=== PATIENT | female | born 1935 | race Two or more races ===

== ENCOUNTER 2025-01-23 18:43 | Inpatient (IN) | payer MEDICARE, OTHER ==
[~2025-01-23] VITALS: Ht 152.4 cm; Wt 74.0 kg
[2025-01-23] MEDS ORDERED: ACETAMINOPHEN ES 500 MG TABLET ONE (19:50)
[2025-01-23] MEDS: ACETAMINOPHEN ES 500 MG TABLET PO ONE (19:55)
[2025-01-23 20:10] LABS: PLATELET COUNT (AUTO) 223 K/uL (150-450); RED BLOOD CELL COUNT(AUTO) 3.84 MIL/uL (4.0-5.2); RED CELL DISTRIBUTION WIDTH 14.0 % (11.5-15.0); WHITE BLOOD COUNT (AUTO) 9.5 K/uL (4.3-11.0)
[2025-01-23 20:17] LABS: CALCIUM, SERUM 8.5 mg/dL (8.5-10.1); CREATININE 0.6 mg/dL (0.6-1.3); SODIUM SERUM 136 mmol/L (136-145); UREA NITROGEN, BLOOD 17 mg/dL (7-18)
[2025-01-23] MEDS ORDERED: Z GUARD REMEDY 4 OZ OINT TP PRN (22:30)
[2025-01-23] MEDS ORDERED: ACETAMINOPHEN 325 MG TABLET PO PRN (22:30)
[2025-01-23] MEDS ORDERED: ONDANSETRON HCL/PF 4 MG/2 ML VIAL IVP PRN (22:30)
[2025-01-23 23:25] VITALS: BP 121/64; TEMP 98.6; O2SAT 97
[2025-01-24] MEDS: HYDROMORPHONE 1 MG/1 ML DISP.SYRIN IV PRN (00:21)
[2025-01-24] MEDS: PANTOPRAZOLE 40 MG TABLET.DR PO SCH (07:30)
[2025-01-24 07:31] LABS: INR 0.96 (0.91-1.10)
[2025-01-24 07:33] LABS: PLATELET COUNT (AUTO) 205 K/uL (150-450); RED BLOOD CELL COUNT(AUTO) 3.38 MIL/uL (4.0-5.2); RED CELL DISTRIBUTION WIDTH 13.4 % (11.5-15.0); WHITE BLOOD COUNT (AUTO) 4.3 K/uL (4.3-11.0)
[2025-01-24 07:50] LABS: CALCIUM, SERUM 8.9 mg/dL (8.5-10.1); CREATININE 0.7 mg/dL (0.6-1.3); PHOSPHORUS 4.3 mg/dL (2.5-4.9); SODIUM SERUM 145.0 mmol/L (136-145); UREA NITROGEN, BLOOD 14.0 mg/dL (7-18)
[2025-01-24 07:57] LABS: LDL 81.0 mg/dL (0-99)
[2025-01-24 08:00] VITALS: BP 118/53; TEMP 98.6; O2SAT 97
[2025-01-24] MEDS: ENOXAPARIN SODIUM 40 MG/0.4 ML DISP.SYRIN SQ SCH (08:20)
[2025-01-24] MEDS ORDERED: SEVOFLURANE 250 ML BOTTLE IH ONE (12:32)
[2025-01-24] MEDS ORDERED: FENTANYL PF 100MCG/2ML AMPUL ONE (12:33)
[2025-01-24] MEDS ORDERED: HYDROMORPHONE INJ 2 MG/ML DISP.SYRIN ONE (12:33)
[2025-01-24] MEDS ORDERED: BUPIVACAINE 0.25% 75 MG/30 ML VIAL ONE (12:46)
[2025-01-24] MEDS ORDERED: VANCOMYCIN 1 GM VIAL ONE (12:46)
[2025-01-24] MEDS ORDERED: TRANEXAMIC ACID 1,000 MG/10 ML VIAL ONE ×2 (12:53)
[2025-01-24 16:00] VITALS: BP 104/63; TEMP 98.1; O2SAT 99
[2025-01-24 20:00] VITALS: BP 99/69; TEMP 97.7; O2SAT 99
[2025-01-24] MEDS: CEFAZOLIN 2 GM in IV D5W 100 ML IV SCH (20:53)
[2025-01-24 23:19] VITALS: BP 99/69; TEMP 97.7; O2SAT 99
[2025-01-25 07:27] LABS: PLATELET COUNT (AUTO) 234 K/uL (150-450); RED BLOOD CELL COUNT(AUTO) 2.95 MIL/uL (4.0-5.2); RED CELL DISTRIBUTION WIDTH 13.4 % (11.5-15.0); WHITE BLOOD COUNT (AUTO) 8.4 K/uL (4.3-11.0)
[2025-01-25 07:56] LABS: CALCIUM, SERUM 8.6 mg/dL (8.5-10.1); CREATININE 1.2 mg/dL (0.6-1.3); PHOSPHORUS 4.7 mg/dL (2.5-4.9); SODIUM SERUM 140.0 mmol/L (136-145); UREA NITROGEN, BLOOD 24.0 mg/dL (7-18)
[2025-01-25 08:23] VITALS: BP 98/52; TEMP 98.4; O2SAT 93
[2025-01-25] MEDS ORDERED: MAGN400T30 PO (10:47)
[2025-01-25] MEDS ORDERED: MIRABEGRON PO (10:47)
[2025-01-25] MEDS ORDERED: MECL-159 PO (10:47)
[2025-01-25] MEDS ORDERED: LIPA1CAP15 PO (10:47)
[2025-01-25] MEDS ORDERED: POTA8CAP20 PO (10:47)
[2025-01-25] MEDS ORDERED: MELA5TAB PO (10:47)
[2025-01-25] MEDS ORDERED: ACET325T53 PO (10:47)
[2025-01-25] MEDS ORDERED: LINA290C PO (10:47)
[2025-01-25] MEDS ORDERED: IMIP25TA6 PO (10:47)
[2025-01-25] MEDS ORDERED: VORT20TA PO (10:47)
[2025-01-25] MEDS ORDERED: RALO60TA PO (10:47)
[2025-01-25] MEDS ORDERED: CLON0.5T4 PO (10:47)
[2025-01-25] MEDS ORDERED: ROSU20TA32 PO (10:47)
[2025-01-25] MEDS ORDERED: ASPI-1420 PO (10:47)
[2025-01-25] MEDS ORDERED: CLON1PAT TD (10:47)
[2025-01-25] MEDS ORDERED: DEXL60CA3 PO (10:47)
[2025-01-25] MEDS ORDERED: IBUP-1955 PO (10:47)
[2025-01-25] MEDS ORDERED: TRIA15CR4 TP (10:47)
[2025-01-25] MEDS ORDERED: PROP60TA6 PO (10:47)
[2025-01-25] MEDS ORDERED: SACU1TAB4 PO (10:47)
[2025-01-25] MEDS ORDERED: NIFE-34 PO (10:47)
[2025-01-25] MEDS ORDERED: ALPR0.5T8 PO (10:47)
[2025-01-25] MEDS ORDERED: BISA10SU12 RC (10:47)
[2025-01-25] MEDS ORDERED: CHOL200059 PO (10:47)
[2025-01-25] MEDS ORDERED: ALEN70TA80 PO (10:47)
[2025-01-25] MEDS ORDERED: MELO-105 PO (10:47)
[2025-01-25] MEDS ORDERED: MEMA5TAB42 PO (10:47)
[2025-01-25] MEDS ORDERED: TRIA0.2585 PO (10:47)
[2025-01-25] MEDS ORDERED: ESTR42.5 VG (10:47)
[2025-01-25] MEDS ORDERED: DOCU100C36 PO (10:47)
[2025-01-25] MEDS ORDERED: GABA300C PO (10:47)
[2025-01-25 11:14] LABS: IRON, SERUM 47 ug/dl (50-175)
[2025-01-25] MEDS: IV NS 0.9% 1,000 ML IV PRN (14:23)
[2025-01-25 14:39] LABS: CREATININE, URINE 221.5 MG/DL (30.0-125.0); URINE SODIUM, RANDOM 6.0 mmol/l (40-220); URINE TOTAL PROTEIN 61.2 mg/dL (0-11.9)
[2025-01-25 14:51] LABS: APPEARANCE,URINE CLEAR (CLEAR); BLOOD, URINE TRACE-INTA Ery/uL (NEGATIVE); LEUKOCYTE ESTERASE ,URINE NEGATIVE (NEGATIVE); NITRITE, URINE NEGATIVE (NEGATIVE); UGLUCOSE NEGATIVE (NEGATIVE)
[2025-01-25 14:59] LABS: ADD URINE CULTURE NO
[2025-01-25 15:00] VITALS: BP 99/49; TEMP 98.1; O2SAT 93
[2025-01-25 15:00] LABS: HYALINE CASTS, URINE Rare /LPF (None Seen)
[2025-01-25 16:35] LABS: EOSINOPHIL,URINE None Seen
[2025-01-25] MEDS: DIGOXIN INJ 0.5 MG/2 ML AMPUL IV SCH (16:37)
[2025-01-25 20:00] VITALS: BP 118/59; TEMP 98.4; O2SAT 98
[2025-01-25] MEDS: HYDROCODONE/APAP 5/325MG TABLET PO PRN (22:47)
[2025-01-26 07:30] VITALS: BP 127/46; TEMP 98.2; O2SAT 94
[2025-01-26] MEDS: APIXABAN 5 MG TABLET PO SCH (10:00)
[2025-01-26 11:07] LABS: PLATELET COUNT (AUTO) 226 K/uL (150-450); RED BLOOD CELL COUNT(AUTO) 2.77 MIL/uL (4.0-5.2); RED CELL DISTRIBUTION WIDTH 15.1 % (11.5-15.0); WHITE BLOOD COUNT (AUTO) 7.2 K/uL (4.3-11.0)
[2025-01-26 11:31] LABS: ASPARTATE AMINOTRANSFERASE 27.0 U/L (15-37); CALCIUM, SERUM 8.4 mg/dL (8.5-10.1); CREATININE 0.9 mg/dL (0.6-1.3); PHOSPHORUS 2.6 mg/dL (2.5-4.9); SODIUM SERUM 140.0 mmol/L (136-145); TOTAL PROTEIN, SERUM 5.9 g/dL (6.4-8.2); UREA NITROGEN, BLOOD 14.0 mg/dL (7-18)
[2025-01-26 11:47] LABS: CREATINE KINASE, TOTAL 328.0 U/L (26-192)
[2025-01-26 16:00] VITALS: BP 117/55; TEMP 98.8; O2SAT 96
[2025-01-26] MEDS: MAGNESIUM HYDROXIDE 30 ML UDC PO PRN (17:29)
[2025-01-26 20:00] VITALS: BP 132/47; TEMP 97.7; O2SAT 96
[2025-01-27 06:00] LABS: PLATELET COUNT (AUTO) 226 K/uL (150-450); RED BLOOD CELL COUNT(AUTO) 2.49 MIL/uL (4.0-5.2); RED CELL DISTRIBUTION WIDTH 13.8 % (11.5-15.0); WHITE BLOOD COUNT (AUTO) 5.7 K/uL (4.3-11.0)
[2025-01-27 06:10] LABS: CALCIUM, SERUM 8.6 mg/dL (8.5-10.1); CREATININE 0.6 mg/dL (0.6-1.3); PHOSPHORUS 2.8 mg/dL (2.5-4.9); SODIUM SERUM 141.0 mmol/L (136-145); UREA NITROGEN, BLOOD 10.0 mg/dL (7-18)
[2025-01-27 07:30] VITALS: BP 123/48; TEMP 97.7; O2SAT 96
[2025-01-27 09:12] LABS: PTH, INTACT 26 pg/mL (15-65)
[2025-01-27] MEDS: POLYETHYLENE GLYCOL 3350 17 GM POWD.PACK PO SCH (09:14)
[2025-01-27 10:17] LABS: EOSINOPHILS % (MANUAL) 2 % (0-4); LYMPHOCYTES % (MANUAL) 12 % (16-48); MONOCYTES % (MANUAL) 16 % (0-11.0); NEUTROPHILS % (MANUAL) 70 (42-76); PLATELET ESTIMATE ADEQUATE
[2025-01-27 16:00] VITALS: BP 137/55; TEMP 97.5; O2SAT 94
[2025-01-27 20:51] VITALS: BP 150/54; TEMP 98.8; O2SAT 98
[2025-01-27] MEDS: NA PHOS,M-B/NA PHOS,DI-BA 1 EA ENEMA RC ONE (22:43)
[2025-01-28] MEDS: MAG HYDROX/AL HYDROX/SIMETH 30 ML UDC PO PRN (01:18)
[2025-01-28 08:00] VITALS: BP 140/67; TEMP 98.1; O2SAT 96
[2025-01-28 08:16] LABS: PLATELET COUNT (AUTO) 265 K/uL (150-450); RED BLOOD CELL COUNT(AUTO) 2.46 MIL/uL (4.0-5.2); RED CELL DISTRIBUTION WIDTH 13.6 % (11.5-15.0); WHITE BLOOD COUNT (AUTO) 6.8 K/uL (4.3-11.0)
[2025-01-28 08:38] LABS: ASPARTATE AMINOTRANSFERASE 22.0 U/L (15-37); CALCIUM, SERUM 8.0 mg/dL (8.5-10.1); CREATININE 0.5 mg/dL (0.6-1.3); PHOSPHORUS 3.1 mg/dL (2.5-4.9); SODIUM SERUM 139.0 mmol/L (136-145); TOTAL PROTEIN, SERUM 5.5 g/dL (6.4-8.2); UREA NITROGEN, BLOOD 13.0 mg/dL (7-18)
== END 2025-01-28 15:52 | DRG 482 ==
LOC: ER 18:45 → MED 22:55
PROVIDERS: ADMIT Nurse Practitioner Acute Care; ATTEND Surgery Vascular Surgery
PROC: 0QS706Z Reposition Left Upper Femur with Intramedullary Internal Fixation Device, Open Approach (ICD-10-PCS; principal; 2025-01-24 12:45)
DX: S72.145A Nondisplaced intertrochanteric fracture of left femur, initial encounter for closed fracture (principal); D64.9 Anemia, unspecified; E66.9 Obesity, unspecified; I10 Essential (primary) hypertension; W01.0XXA Fall on same level from slipping, tripping and stumbling without subsequent striking against object, initial encounter; E78.5 Hyperlipidemia, unspecified; Y92.003 Bedroom of unspecified non-institutional (private) residence as the place of occurrence of the external cause; Z68.33 Body mass index [BMI] 33.0-33.9, adult; Z79.83 Long term (current) use of bisphosphonates; Z79.82 Long term (current) use of aspirin; Z79.899 Other long term (current) drug therapy; M89.8X9 Other specified disorders of bone, unspecified site; R04.0 Epistaxis
CPT/HCPCS: 36415; 70450-TC; 71045-TC; 73502; 73700-TC; 80048-TC; 80053-TC; 80061-TC; 81001; 82550-TC; 82553; 82570-TC; 82728-TC; 83540-TC; 83735-TC; 83970; 84100-TC; 84155; 84165; 84300-TC; 84443-TC; 85025-TC; 85027-TC; 85610-TC; 85730-TC; 86850-TC; 93307-TC; 97110-TC; 97116-TC; 97530-TC; A4217; A4223; A6209; A6223; A6253; C1713; G0378; J0690; J1100; J1160; J1171; J1650; J1885; J2312; J2405; J2704; J2765; J3010; J3373; J3490; J7030; J7040; J7060; J7070